=== PATIENT | female | born 1955 | race Caucasian/White ===

== ENCOUNTER 2017-09-08 12:47 | Emergency (ER) | payer BC ==
[~2017-09-08] VITALS: Ht 167.6 cm; Wt 124.3 kg
[2017-09-08 13:00] VITALS: BP 142/89
[2017-09-08] MEDS ORDERED: FURO-69 PO (13:29)
--- NOTE | 2017-09-08 13:29 | PHYS DOC ---
Past History Past Medical History: Diabetes Past Surgical History: No Surgical History Alcohol Use: Occasionally Drug Use: None Adult General Chief Complaint Chief Complaint: LOWER EXTREMITY SWELLING HPI HPI 62-year-old female presenting to the emergency department with bilateral leg swelling over the past few days. She reports a history of edema over the summer time which improved spontaneously. She did see her primary care physician for that at that time. She reports a history of poor sleeping and increased fatigue during the daytime along with noisy sleeping at night. She denies any difficulty breathing or exertional dyspnea. She denies any new rashes. She denies any recent immobilizations or surgery. Location legs. Duration intermittent. It is worse at the end of the evening and improved in the morning time. Review of systems is negative for difficulty breathing chest pain fevers or chills. She denies abdominal pain nausea or vomiting. She denies diaphoresis. All other review of systems is negative unless otherwise noted in history of present illness. ED course: 62-year-old female presenting with mild bilateral pedal edema. Upon arrival the patient is afebrile saturating well on room air and breathing comfortably. She is nontoxic appearing. Clear lung sounds bilaterally. Regular rate and rhythm. Abdomen is soft and nontender. Patient has 1+ edema bilaterally without any erythema. Nontender along the venous system on both sides. Her extremities are normal in color and temperature. Neurovascularly intact in all extremities. Palpable pulse with 2 second cap refill. I recommend the patient did not patient echocardiogram and outpatient sleep study. The patient's vital signs are unremarkable here other than mild htn. The patient was then discharged home in stable condition to follow up with their primary care physician over the next 2-3 days. They were to return if their symptoms worsened or if they were concerned for any reason. [id number] discharge instructions and return precautions were given. Patient's questions were answered to their satisfaction. Patient is comfortable with plan. Review of Systems Review of Systems SEE ABOVE. Allergies Allergies Allergies Coded Allergies Type Severity Reaction Last Updated Verified No Known Drug Allergies 09/08/17 No Physical Exam Physical Exam SEE ABOVE Constitutional: Well developed, well nourished, no acute distress, non-toxic appearance. [] HENT: Normocephalic, atraumatic, bilateral external ears normal, oropharynx moist, no oral exudates, nose normal. Eyes: PERRLA, EOMI, conjunctiva normal, no discharge. [] Neck: Normal range of motion, no tenderness, supple, no stridor. Cardiovascular:Heart rate regular rhythm, no murmur [] Lungs & Thorax: Bilateral breath sounds clear to auscultation Abdomen: Bowel sounds normal, soft, no tenderness, no masses, no pulsatile masses. [] Skin: Warm, dry, no erythema, no rash. [] Back: No tenderness, no CVA tenderness. Extremities: No tenderness, no cyanosis, no clubbing, ROM intact, 1+ edema bilaterally. No erythema of the skin. Normal temperature to touch. Neurologic: Alert and oriented X 3, normal motor function, normal sensory function, no focal deficits noted. Psychologic: Affect normal, judgement normal, mood normal. [] Current Patient Data Vital Signs Vital Signs Date Time Temp Pulse Resp B/P (MAP) Pulse Ox O2 Delivery O2 Flow Rate FiO2 09/08/17 13:00 98.2 98 18 98 Room Air EKG EKG [] Radiology/Procedures Radiology/Procedures [] Course & Med Decision Making Course & Med Decision Making Pertinent Labs and Imaging studies reviewed. (See chart for details) [] Dragon Disclaimer Dragon Disclaimer This electronic medical record was generated, in whole or in part, using a voice recognition dictation system. Departure Departure: Impression: Primary Impression: Pedal edema Disposition: 01 HOME, SELF-CARE Condition: STABLE Referrals: ROGER FONSECA MD (PCP) Patient Instructions: Edema Additional Instructions: Thank you for allowing us to participate in your care today. Today, I am going to start you on a low-dose medication for your edema. I am referring you back to primary care physician for outpatient evaluation workup. Tests that may be performed on an outpatient basis include echocardiogram and sleep study along with other tests the your doctor may desire. Followup with your primary care physician in 3 days. Call your Primary Doctor tomorrow and inform them of your visit today. If you do not have a primary care provider you can ask for a list of our primary care providers. Return to the emergency department you have any new or concerning findings. This should be evaluated by the primary care physician and any necessary consulting services for continued management within a few days after discharge. Return to emergency room if you have any new or concerning symptoms including but not limited to fever, chills, nausea, vomiting, intractable pain, any new rashes, chest pain, shortness of air, uncontrolled bleeding, difficulty breathing, and/or vision loss. Scripts Furosemide (LASIX) 20 Mg Tablet 1 TAB PO DAILY, #7 TAB 0 Refills Prov: CAMPBELL CHANG MD 09/08/17 CAMPBELL CHANG MD Sep 08, 2017 13:29
[2017-09-08] MEDS ORDERED: FUROSEMIDE 40 MG TABLET ONE (13:39)
[2017-09-08] MEDS ORDERED: FUROSEMIDE 40 MG TABLET PO ONE (17:00)
== END 2017-09-08 13:47 | disposition home or self-care (01) ==
LOC: ER 12:47
DX: R60.0 Localized edema (principal); E11.9 Type 2 diabetes mellitus without complications
CPT/HCPCS: 99283

== ENCOUNTER → 2017-09-16 | Outpatient (CLI) | payer BC ==
[2017-09-08 13:00] VITALS: BP 142/89
[~2017-09-16] MED LIST: FURO-69 PO
--- NOTE | 2017-09-16 13:46 | CARD ---
MR#: [id number] Date of Study: 09/16/2017 Ordering Physician: ROGER FONSECA, Referring Physician: ROGER FONSECA, Tech: Carmelita Olivermarcus [facility] APPROVED REPORT EXAM: Two-dimensional and M-mode echocardiogram with Doppler and color Doppler. Other Information Quality : Technically Difficult INDICATION Pedal Edema 2D DIMENSIONS Left Atrium(2D)4.2 (1.6-4.0cm)IVSd1.4 (0.7-1.1cm) Aortic Root(2D)2.7 (2.0-3.7cm)LVDd4.4 (3.9-5.9cm) LVOT Diameter2.0 (1.8-2.4cm)PWd1.0 (0.7-1.1cm) LVDs3.1 (2.5-4.0cm)FS (%) 30.2 % SV51.8 mlLVEF(%)57.7 (>50%) Aortic Valve AoV Peak Kaveh.170.6cm/sAoV VTI32.3cm AO Peak GR.11.6mmHgAO Mean GR.7mmHg Mitral Valve MV E Hxsivdxb75.5cm/sMV DECEL MLVV659ay MV A Qrtujywd42.9cm/sE/A Ratio0.7 Pulmonary Valve PV Peak Ywnkoztn363.4cm/sPV Peak Grad.5mmHg Tricuspid Valve TR P. Capwrend497hp/sRAP XCCTQOAI4ecCo TR Peak Gr.43apAvFWUT84adVx LEFT VENTRICLE The left ventricle is normal size. There is normal left ventricular wall thickness. The left ventricu lar systolic function is normal and the ejection fraction is within normal range. The Ejection Fracti on is 55-60%. There is normal LV segmental wall motion. Tissue Doppler imaging reveals mild left vent ricular diastolic dysfunction. RIGHT VENTRICLE The right ventricle is normal size. There is normal right ventricular wall thickness. The right ventr icular systolic function is normal. ATRIA The left atrium is borderline dilated. The right atrium is borderline dilated. The atrial septum is m ildly thickened. The interatrial septum is intact with no evidence for an atrial septal defect or pat ent foramen ovale as noted on 2-D or Doppler imaging. AORTIC VALVE The aortic valve is probably trileaflet. Doppler and Color Flow revealed no significant aortic regurg itation. There is no significant aortic valvular stenosis. MITRAL VALVE The mitral valve is normal in structure and function. There is no evidence of mitral valve prolapse. There is no mitral valve stenosis. Doppler and Color Flow revealed no mitral valve regurgitation note d. TRICUSPID VALVE The tricuspid valve is normal in structure and function. Doppler and Color Flow revealed trace tricus pid regurgitation. PA pressure of approximately 30 mm Hg. No significant pulmonary HTN. There is no t ricuspid valve stenosis. PULMONIC VALVE Doppler and Color Flow revealed no pulmonic valvular regurgitation. There is no pulmonic valvular dena nosis. GREAT VESSELS The aortic root is normal in size. The IVC is normal in size and collapses >50% with inspiration. PERICARDIAL EFFUSION There is no pleural effusion. There is no evidence of significant pericardial effusion. Critical Notification Critical Value: No <Conclusion> The left ventricular systolic function is normal and the ejection fraction is within normal range. Th e Ejection Fraction is 55-60%. There is normal LV segmental wall motion. Tissue Doppler imaging reveals mild left ventricular diastolic dysfunction. Doppler and Color Flow revealed trace tricuspid regurgitation. PA pressure of approximately 30 mm Hg. No significant pulmonary HTN. No significant valvular disease. Signed by : Karan Pagan, Electronically Approved : 09/16/2017 13:45:59
== END | disposition home or self-care (01) ==
LOC: ECHO 10:50
PROVIDERS: ATTEND Family Medicine
DX: R60.9 Edema, unspecified (principal); I07.1 Rheumatic tricuspid insufficiency
CPT/HCPCS: 93306

== ENCOUNTER → 2017-09-19 | Outpatient (CLI) | payer BC ==
[2017-09-08 13:00] VITALS: BP 142/89
--- NOTE | 2017-09-19 17:05 | RAD ---
DATE: 09/19/2017 EXAM: MAMMO TIAGO SCREENING BILATERAL Bilateral digital screening mammography to include digital breast tomosynthesis (3D mammography) HISTORY: Screening study. COMPARISON: 06/08/2015 This study was interpreted with the benefit of Computerized Aided Detection (CAD). The breast parenchyma is heterogeneously dense, which could reduce sensitivity of mammography. Breast parenchyma level C. FINDINGS: Digital MLO and CC mammograms of both breasts were obtained. Additionally digital breast tomosynthesis (3D mammography) images of both breasts in the MLO and CC projections were performed. Comparison study is dated 06/08/2015. The breast parenchyma is heterogeneously dense which can obscure a lesion on mammography (breast density code C). No spiculated mass is seen. No malignant appearing calcification or area of architectural distortion is noted. Well-defined benign-appearing nodules are seen scattered throughout both breasts consistent with the patient's history of breast cysts. Digital breast tomosynthesis images demonstrate no spiculated mass or malignant appearing calcification. Since the previous examination there has been no significant interval change. IMPRESSION: BI-RADS Category 2 benign findings. There is no mammographic evidence of malignancy. Routine yearly screening mammography is recommended for follow-up. BI-RADS CATEGORY: 2 BENIGN FINDING(S) RECOMMENDED FOLLOW-UP: 12M 12 MONTH FOLLOW-UP PQRS compliance statement: Patient information was entered into a reminder system with a target due date 09/19/2018 for the next mammogram. Mammography is a sensitive method for finding small breast cancers, but it does not detect them all and is not a substitute for careful clinical examination. A negative mammogram does not negate a clinically suspicious finding and should not result in delay in biopsying a clinically suspicious abnormality. "Our facility is accredited by the [employer] Mammography Program."
== END | disposition home or self-care (01) ==
LOC: MAMMO 14:48
PROVIDERS: ATTEND Family Medicine
DX: Z12.31 Encounter for screening mammogram for malignant neoplasm of breast (principal)
CPT/HCPCS: 77063; 77067

== ENCOUNTER → 2018-04-23 | Outpatient (CLI) | payer BC ==
--- NOTE | 2018-04-23 15:28 | RAD ---
Left lower extremity venous duplex study 04/23/2018 Clinical History: Lower extremity pain Technique: Using a combination of real time ultrasound imaging and color-flow and pulse Doppler imaging techniques, including spectral analysis, graded compression and augmentation, duplex evaluation of the deep venous system of the left lower extremity was performed. Multiple images were obtained. Findings: There is no sonographic evidence of deep venous thrombosis involving the visualized deep venous structures of the left lower extremity Impression: No evidence of deep venous thrombosis involving the left lower extremity Electronically signed by: Filiberto Zamudio MD (04/23/2018 3:24 PM) [id number]
--- NOTE | 2018-04-23 18:07 | RAD ---
KNEE LEFT 3V History: LEFT KNEE PAIN . Comparison: None are available No acute fracture or bone destruction. Joints and soft tissues appear intact. Impression: No acute radiographic abnormality Electronically signed by: Alex Wade MD (04/23/2018 6:03 PM) [id number]
== END | disposition home or self-care (01) ==
LOC: US 14:38
PROVIDERS: ATTEND Nurse Practitioner Family
DX: M25.562 Pain in left knee (principal); E11.9 Type 2 diabetes mellitus without complications
CPT/HCPCS: 73562; 93971

== ENCOUNTER → 2018-10-23 | Outpatient (CLI) | payer BC ==
[~2018-10-23] MED LIST changes: +BACL10TA PO
--- NOTE | 2018-10-23 09:55 | RAD ---
DATE: 10/23/2018 EXAM: MAMMO TIAGO SCREENING BILATERAL HISTORY: Routine screening COMPARISON: 09/19/2017 This study was interpreted with the benefit of Computerized Aided Detection (CAD). Breast Density: HETERO The breast parenchyma is heterogenously dense, which could reduce sensitivity of mammography. Breast parenchyma level C. FINDINGS: The fibroglandular tissues are heterogeneous and multinodular in character. A previous ultrasound study demonstrated multiple bilateral breast cysts. No new or enlarging breast densities are seen. No spiculated mass or architectural distortion is evident. Scattered benign type calcifications are again noted. IMPRESSION: Stable mammograms without evidence of malignancy. BI-RADS CATEGORY: 2 BENIGN FINDING(S) RECOMMENDED FOLLOW-UP: 12M 12 MONTH FOLLOW-UP PQRS compliance statement: Patient information was entered into a reminder system with a target due date for the next mammogram. Mammography is a sensitive method for finding small breast cancers, but it does not detect them all and is not a substitute for careful clinical examination. A negative mammogram does not negate a clinically suspicious finding and should not result in delay in biopsying a clinically suspicious abnormality. "Our facility is accredited by the [employer] Mammography [employer]."
== END | disposition home or self-care (01) ==
LOC: MAMMO 07:45
PROVIDERS: ATTEND Family Medicine
DX: Z12.31 Encounter for screening mammogram for malignant neoplasm of breast (principal)
CPT/HCPCS: 77063; 77067

== ENCOUNTER 2019-03-07 15:41 | Emergency (ER) | payer BC ==
[~2019-03-07] VITALS: Ht 167.6 cm; Wt 130.0 kg
[~2019-03-07 15:41] MED LIST changes: -BACL10TA PO
[2019-03-07 16:37] LABS: BACTERIA,URINE 0 /HPF (0-FEW); BILIRUBIN,URINE NEG (NEG); CLARITY,URINE HAZY; COLOR,URINE AMBER; GLUCOSE,URINE NEG (NEG); NITRITE,URINE NEG (NEG); RBC,URINE 0 /HPF (0-2); SQUAMOUS EPITHELIAL CELL,UR OCC /LPF; UROBILINOGEN,URINE 0.2 mg/dL (0.2 mg/dL); WBC,URINE 0 /HPF (0-4)
--- NOTE | 2019-03-07 16:45 | PHYS DOC ---
Past History Past Medical History: Diabetes Past Surgical History: No Surgical History, Hysterectomy Alcohol Use: Occasionally Drug Use: None Adult General Chief Complaint Chief Complaint: BACK PAIN OR INJURY HPI HPI 63-year-old female presents with left-sided mid back pain. Patient states that she is having remnants episodes of a tightness feeling that lasts for a few seconds each episode over the eighth through 10th ribs. This is been going on for a couple of days. Went to her PCP a few days ago with concern for UTI or kidney stone and she did not have infection but did have blood in her urine. They referred her to urology. The patient comes in today because the pain seemed to be more frequent and more intense. She denies fever or chills. Review of Systems Review of Systems Constitutional: Denies fever or chills [] Eyes: Denies change in visual acuity, redness, or eye pain [] HENT: Denies nasal congestion or sore throat [] Respiratory: Denies cough or shortness of breath [] Cardiovascular: No additional information not addressed in HPI [] GI: Denies abdominal pain, nausea, vomiting, bloody stools or diarrhea [] : Denies dysuria or hematuria [] Musculoskeletal: Left-sided back pain[] Integument: Denies rash or skin lesions [] Neurologic: Denies headache, focal weakness or sensory changes [] Endocrine: Denies polyuria or polydipsia [] All other systems were reviewed and found to be within normal limits, except as documented in this note. Allergies Allergies Allergies Coded Allergies Type Severity Reaction Last Updated Verified No Known Drug Allergies 09/08/17 No Physical Exam Physical Exam Constitutional: Well developed, morbidly obese, well nourished, no acute distress, non-toxic appearance. [] HENT: Normocephalic, atraumatic, bilateral external ears normal, oropharynx moist, no oral exudates, nose normal. [] Eyes: PERRLA, EOMI, conjunctiva normal, no discharge. [] Neck: Normal range of motion, no tenderness, supple, no stridor. [] Cardiovascular:Heart rate regular rhythm, no murmur [] Lungs & Thorax: Bilateral breath sounds clear to auscultation [] Abdomen: Bowel sounds normal, soft, no tenderness, no masses, no pulsatile masses. [] Skin: Warm, dry, no erythema, no rash. [] Back: Mild left CVA tenderness. [] Extremities: No tenderness, no cyanosis, no clubbing, ROM intact, no edema. [] Neurologic: Alert and oriented X 3, normal motor function, normal sensory function, no focal deficits noted. [] Psychologic: Affect normal, judgement normal, mood normal. [] Current Patient Data Vital Signs Vital Signs Date Time Temp Pulse Resp B/P (MAP) Pulse Ox O2 Delivery O2 Flow Rate FiO2 03/07/19 15:58 98.2 103 18 95 Room Air Lab Results Laboratory Tests Test 03/07/19 16:19 Urine Collection Type Unknown Urine Color Mildred Urine Clarity Hazy Urine pH 5.5 Urine Specific Friendship >=1.030 Urine Protein Neg (NEG-TRACE) Urine Glucose (UA) Neg mg/dL (NEG) Urine Ketones (Stick) Neg mg/dL (NEG) Urine Blood Trace (NEG) Urine Nitrite Neg (NEG) Urine Bilirubin Neg (NEG) Urine Urobilinogen Dipstick 0.2 mg/dL (0.2 mg/dL) Urine Leukocyte Esterase Neg (NEG) Urine RBC 0 /HPF (0-2) Urine WBC 0 /HPF (0-4) Urine Squamous Epithelial Cells Occ /LPF Urine Bacteria 0 /HPF (0-FEW) EKG EKG [] Radiology/Procedures Radiology/Procedures [] Course & Med Decision Making Course & Med Decision Making Pertinent Labs and Imaging studies reviewed. (See chart for details) The patient's urinalysis shows small blood, but no white cells and no RBCs. CT scan is negative for acute findings. A significant mostly more musculoskeletal. I believe she is getting muscle spasms. I will treat her with muscle relaxant baclofen. She is stable for discharge at this time. [] Dragon Disclaimer Dragon Disclaimer This electronic medical record was generated, in whole or in part, using a voice recognition dictation system. Departure Departure: Impression: Primary Impression: Lumbar paraspinal muscle spasm Disposition: 01 HOME, SELF-CARE Condition: STABLE Referrals: ROGER FONSECA MD (PCP) Patient Instructions: Low Back Strain with Rehab-SportsMed Scripts Baclofen (BACLOFEN) 10 Mg Tablet 10 MG PO QID PRN for MUSCLE SPASMS, #30 TAB 0 Refills Prov: ELMA YORK DO 03/07/19 ELMA YORK DO Mar 07, 2019 16:45
--- NOTE | 2019-03-07 17:16 | RAD ---
CT scan of the abdomen and pelvis without contrast 03/07/2019 CLINICAL HISTORY: Flank pain. TECHNIQUE: Unenhanced, contiguous, 3 mm axial sections were obtained through the abdomen and pelvis. One or more of the following individualized dose reduction techniques were utilized for this study: 1. Automated exposure control. 2. Adjustment of the mA and/or kV according to patient size. 3. Use of iterative reconstruction technique. FINDINGS: Comparison study is dated 11/13/2010. Images through the lung bases demonstrate minimal dependent subsegmental atelectasis bilaterally. The liver parenchyma has a decreased attenuation consistent with fatty infiltration. The spleen, pancreas, adrenal glands and kidneys are within normal limits. No renal or ureteral calculus is seen. There is no evidence of obstruction of either collecting system. Atherosclerotic calcification of the abdominal aorta is seen. The abdominal aorta tapers normally. No free fluid or free air is within the abdomen. There is no evidence of bowel obstruction. The appendix is well-visualized and is within normal limits. Images through the pelvis demonstrate the urinary bladder to be contracted. Calcifications are seen within the pelvis consistent with phleboliths. No free fluid is seen. Scattered diverticula are seen involving the sigmoid colon. No inflammatory changes are seen in the adjacent fat. Very mild S-shaped curvature of the thoracolumbar spine is seen. Degenerative changes are seen involving the lower thoracic and throughout the lumbar spine. IMPRESSION: No acute abnormality is seen. Electronically signed by: Sukhjinder Mccartney MD (03/07/2019 5:13 PM) [facility]
[2019-03-07] MEDS ORDERED: BACL10TA PO (17:30)
[2019-03-07 17:37] VITALS: BP 165/87
== END 2019-03-07 17:35 | disposition home or self-care (01) ==
LOC: ER 15:41
DX: M62.830 Muscle spasm of back (principal); M54.5 Low back pain; R07.81 Pleurodynia; E11.9 Type 2 diabetes mellitus without complications
CPT/HCPCS: 74176; 81001; 99285

== ENCOUNTER → 2019-11-17 | Outpatient (CLI) | payer BC ==
[~2019-11-17] MED LIST changes: +BACL10TA PO
--- NOTE | 2019-11-17 12:56 | RAD ---
DEXA scan 11/17/2019 Clinical History: Menopause. Risk factors for osteoporosis. Technique: DEXA of the lumbar spine and right hip was performed. FINDINGS: No previous studies are available for comparison. The bone mineral density of the lumbar spine is 1.139 g/cm2 which corresponds with a T-score of -0.3 . This is within normal limits. The mean bone mineral density of the right hip is 896 g/sq cm. This corresponds to a T score of -0.5 . This is within normal limits. By World [employer] on Osteoporosis criteria, a T score of 0 to-1 SD is considered to be within normal limits. A T score of -1 to -2.5 SD is considered osteopenia. A T score less than -2.5 SD is considered osteoporosis Impression: The patient's mean bone mineral densities are within normal limits. Electronically signed by: Sukhjinder Mccartney MD (11/17/2019 12:53 PM) [facility] [place]
--- NOTE | 2019-11-19 13:52 | RAD ---
History: Routine screening. Technique: Bilateral digital mammographic routine views were obtained with 2-D and 3-D technique including CAD - computer aided detection. Comparison: 10/23/2018. Findings: Breast Tissue Density B :The breast tissue is composed of mixed fatty and fibroglandular tissue. There are no suspicious masses, microcalcifications or areas of architectural distortion. Impression: Negative mammogram. BI-RADS Category 1: Negative. Normal interval followup. A mammogram does not have 100% sensitivity and therefore a negative imaging study should not delay further work up of a suspicious abnormality. The patient will receive a letter with the results in the mail. Patient information is entered into the reminder system with a target due date for the next screening mammogram. The patient will receive a reminder. "Our facility is accredited by the [employer] Mammography Program." BI-RADS 1 -- negative findings (within normal)
== END | disposition home or self-care (01) ==
LOC: MAMMO 08:56
PROVIDERS: ATTEND Physician Assistant Medical
DX: Z12.31 Encounter for screening mammogram for malignant neoplasm of breast (principal)
CPT/HCPCS: 77063; 77067; 77080

== ENCOUNTER → 2020-11-28 | Outpatient (CLI) | payer BC ==
--- NOTE | 2020-11-28 13:19 | RAD ---
DATE: 11/28/2020 11:20 AM EXAM: MAMMO TIAGO SCREENING BILATERAL HISTORY: Screening COMPARISON: 09/19/2017, 10/23/2018 and 11/17/2019 Bilateral CC and MLO views of the breasts were performed. Bilateral breast tomosynthesis was performed in CC and MLO projections. This study was interpreted with the benefit of Computerized Aided Detection (CAD). FINDINGS: Breast Density: HETERO The breast parenchyma Is heterogeneously dense, which could reduce sensitivity of mammography. Breast parenchyma level C No suspicious masses, microcalcifications or architectural distortion is present to suggest malignancy in either breast. The visualized axillae are unremarkable. IMPRESSION: No mammographic evidence of malignancy. BI-RADS CATEGORY: 1 NEGATIVE RECOMMENDED FOLLOW-UP: 12M 12 MONTH FOLLOW-UP Annual screening mammography is recommended, unless clinically indicated sooner based on symptoms or change in physical exam. PQRS compliance statement: Patient information was entered into a reminder system with a target due date for the next mammogram. Mammography is a sensitive method for finding small breast cancers, but it does not detect them all and is not a substitute for careful clinical examination. A negative mammogram does not negate a clinically suspicious finding and should not result in delay in biopsying a clinically suspicious abnormality. "Our facility is accredited by the [employer] Mammography Program."
== END ==
LOC: MAMMO 11:16
PROVIDERS: ATTEND Physician Assistant Medical
DX: Z12.31 Encounter for screening mammogram for malignant neoplasm of breast (principal)
CPT/HCPCS: 77063; 77067

== ENCOUNTER → 2021-03-06 | Outpatient (CLI) | payer BC ==
--- NOTE | 2021-03-06 08:57 | RAD ---
EXAMINATION: RIGHT UPPER QUADRANT ULTRASOUND CLINICAL HISTORY: Right upper quadrant abdominal pain TECHNIQUE: Sonography of the right upper quadrant was performed. COMPARISON: CT abdomen/pelvis 03/07/2019 FINDINGS: Pancreas: Poorly visualized secondary to prominent overlying bowel gas. Liver: - Echotexture: Normal, homogeneous. - Echogenicity: Increased - Surface contour: Smooth - Lesions: None. Biliary: No intrahepatic biliary duct dilation. - CBD: 12 mm. - Gallbladder: Normal caliber - Contents: No cholelithiasis - Wall: Normal - Other: No pericholecystic fluid. Right Kidney: Measures 10.9 cm in length. No hydronephrosis or focal lesion. Ascites: None. Aorta/IVC: Partially visualized aorta and IVC unremarkable. IMPRESSION: Dilated common bile duct without evidence of choledocholithiasis, correlate clinically and consider M MANAGER RESIDENTIAL for further evaluation as indicated. Hepatic steatosis. Poorly visualized pancreas. Electronically signed by: Harris Mack DO (03/06/2021 8:55 AM) [id number]
== END ==
LOC: US 07:52
PROVIDERS: ATTEND Physician Assistant Medical
DX: K83.8 Other specified diseases of biliary tract (principal); K76.0 Fatty (change of) liver, not elsewhere classified
CPT/HCPCS: 76705

== ENCOUNTER → 2021-04-05 | Outpatient (CLI) | payer MEDICARE ==
--- NOTE | 2021-04-05 14:35 | RAD ---
EXAM: PA and Lateral Views of the Chest DATE: 04/05/2021 11:40 AM INDICATION: Reason: CHEST PAIN / Spl. Instructions: / History: COMPARISON: No Prior FINDINGS: The heart is not enlarged. Mediastinal and hilar contours are normal. No focal parenchymal airspace opacity. No pleural effusion or pneumothorax. IMPRESSION: 1. No radiographic evidence for acute cardiopulmonary process. Electronically signed by: Iarj Hassan MD (04/05/2021 2:33 PM) [id number]
--- NOTE | 2021-04-05 15:24 | RAD ---
XR HAND 2 VIEWS 04/05/2021 3:06 PM Reason: BILATERAL HAND PAIN Comparison: None Technique: 2 views of each hand Findings: There is no acute fracture or dislocation. There is joint space narrowing and osteophyte fo rmation greatest at the distal interphalangeal joints bilaterally. No changes to suggest periarticula r reabsorption. There is mild joint space narrowing of the proximal interphalangeal joint. Degenerati ve changes also seen at the first carpal metacarpal joint. Soft tissues are unremarkable. Impression: Findings most suggestive of osteoarthritis. Electronically signed by: Jovany Cerrato (04/05/2021 3:21 PM) [id number]
--- NOTE | 2021-04-05 16:13 | RAD ---
XR HIP (WITH OR WITHOUT PELVIS) 1 VIEW 04/05/2021 4:08 PM Reason: BILATERAL HIP PAIN Comparison: None Technique: AP view of the pelvis, 2 views of each hip Findings: There is no acute fracture or dislocation. The pelvic rings are congruent. There are vascular calcifi cations overlying the lower pelvis. There is mild degenerative changes of the bilateral hips with sub chondral sclerosis and marginal osteophytosis. Mild joint space narrowing. Smooth, calcific body stewart g the left greater trochanter of uncertain origin, possibly remote trauma. Impression: 1. No acute osseous abnormality. 2. Mild degenerative changes bilateral hips. Electronically signed by: Jovany Cerrato (04/05/2021 4:10 PM) [id number]
== END ==
LOC: RAD 11:19
PROVIDERS: ATTEND Internal Medicine Rheumatology
DX: M16.0 Bilateral primary osteoarthritis of hip (principal); M25.742 Osteophyte, left hand; M25.741 Osteophyte, right hand; M70.60 Trochanteric bursitis, unspecified hip; M79.7 Fibromyalgia; H04.123 Dry eye syndrome of bilateral lacrimal glands; R53.83 Other fatigue; R70.0 Elevated erythrocyte sedimentation rate; R79.82 Elevated C-reactive protein (CRP); Z79.899 Other long term (current) drug therapy
CPT/HCPCS: 71046; 73120; 73521

== ENCOUNTER → 2021-05-25 | Outpatient (CLI) | payer MEDICARE ==
[2021-05-25 09:46] LABS: ALBUMIN 3.3 g/dL (3.4-5.0); DIRECT BILIRUBIN 0.1 mg/dL (0.0-0.2); TOTAL BILIRUBIN 0.3 mg/dL (0.2-1.0); TOTAL PROTEIN 7.4 g/dL (6.4-8.2)
== END ==
LOC: LAB 08:54
PROVIDERS: ATTEND Internal Medicine Gastroenterology
DX: R10.11 Right upper quadrant pain (principal)
CPT/HCPCS: 36415; 80076

== ENCOUNTER → 2021-06-05 | Outpatient (CLI) | payer MEDICARE ==
[~2021-06-05] MED LIST changes: +IOHEXOL 300 MG/ML 75 ML VIAL. IV ONE
[2021-06-05 09:10] LABS: CREATININE 0.7 mg/dL (0.6-1.0)
--- NOTE | 2021-06-05 10:48 | RAD ---
EXAMINATION: CT abdomen with and without IV contrast. INDICATION:66 years, Female, abnormal ultrasound dilated CBD. TECHNIQUE: Axial CT images of the abdomen was obtained. Coronal and sagittal reformatted performed. COMPARISON: Ultrasound dated 03/06/2021. Exposure: One or more of the following individualized dose reduction techniques were utilized for thi s examination: 1. Automated exposure control 2. Adjustment of the mA and/or kV according to patient size 3. Use of iterative reconstruction technique. FINDINGS: LOWER CHEST: Unremarkable. ABDOMEN/PELVIS: Mild hepatomegaly with diffuse steatosis, measures 20 cm in length. No suspicious focal hepatic lesio n. Multifocal areas of fatty sparing adjacent to the gallbladder. Unremarkable gallbladder, biliary d ucts and spleen. Mildly atrophic pancreatic parenchyma with fat infiltration. No hydronephrosis or ne phrolithiasis in either kidney. Small hiatal hernia. No bowel obstruction. Normal appendix. No lympha denopathy in the abdomen by size criteria. Normal caliber abdominal aorta. Mesenteric arteries and po rtal vein are patent. No ascites or pneumoperitoneum. MUSCULOSKELETAL: No acute osseous process or suspicious lesion. IMPRESSION: 1. No intra or extrahepatic biliary ductal dilation. 2. Mild hepatomegaly with moderate to severe steatosis. Electronically signed by: Ysabel Loera MD (06/05/2021 10:46 AM) [id number]
== END ==
LOC: CT 08:14
PROVIDERS: ATTEND Internal Medicine Gastroenterology
DX: K76.0 Fatty (change of) liver, not elsewhere classified (principal); K44.9 Diaphragmatic hernia without obstruction or gangrene; R16.0 Hepatomegaly, not elsewhere classified; R93.3 Abnormal findings on diagnostic imaging of other parts of digestive tract
CPT/HCPCS: 36415; 74170; 82565; 84520; Q9967

== ENCOUNTER → 2021-06-19 | Outpatient (CLI) | payer MEDICARE ==
[~2021-06-19] MED LIST changes: -IOHEXOL 300 MG/ML 75 ML VIAL. IV ONE
[2021-06-20 08:15] LABS: CERULOPLASMIN 29.3 mg/dL (19.0-39.0)
[2021-06-21 16:18] LABS: A1A SERUM 131 mg/dL (101-187)
== END ==
LOC: LAB 08:18
PROVIDERS: ATTEND Internal Medicine Gastroenterology
DX: R79.89 Other specified abnormal findings of blood chemistry (principal)
CPT/HCPCS: 36415; 82103; 82104; 82390; 82728; 86803; 87340

== ENCOUNTER → 2021-11-02 | Outpatient (CLI) | payer MEDICARE ==
--- NOTE | 2021-11-02 08:41 | RAD ---
Examination: 2 views of the bilateral knees HISTORY: History of fall COMPARISON: None available FINDINGS: Moderate joint space loss identified in the medial, lateral, patellofemoral compartments of the bilat eral knees. There is no acute fracture dislocation identified. IMPRESSION: Moderate tricompartmental degenerative changes bilateral knees. Electronically signed by: Kem Jacinto MD (11/02/2021 8:38 AM) [id number]
== END ==
LOC: RAD 08:07
PROVIDERS: ATTEND Physician Assistant Medical
DX: M17.0 Bilateral primary osteoarthritis of knee (principal)
CPT/HCPCS: 73560-50

== ENCOUNTER → 2021-12-19 | Outpatient (CLI) | payer MEDICARE ==
--- NOTE | 2021-12-19 16:55 | RAD ---
INDICATION: 66 years of age asymptomatic female patient presents for screening mammography. Family hi story breast cancer and paternal aunt and paternal grandmother, ages unspecified. TECHNIQUE: Full field craniocaudal and mediolateral oblique images of both breasts were obtained usi ng digital technique with tomosynthesis and also analyzed with computer-aided detection software. COMPARISON: Prior mammographic imaging dating back to 09/19/2017. BREAST COMPOSITION: Category B: There are scattered fibroglandular densities. FINDINGS: Stable nodular parenchymal pattern of both breasts. No suspicious masses, microcalcifications or architectural distortion is present to suggest malignanc y in either breast. The visualized axillae are unremarkable. IMPRESSION: No mammographic evidence of malignancy. RECOMMENDATION: Annual screening mammography is recommended, unless clinically indicated sooner based on symptoms or change in physical exam. BIRADS 2: BENIGN This study was interpreted with the benefit of Computerized Aided Detection (CAD). Patient information is entered into the reminder system with a target due date for the next screening mammogram. Mammography is the most sensitive method for finding small breast cancers, but it does not detect the m all and is not a substitute for careful clinical examination. A negative mammogram does not negate a clinically suspicious finding and should not result in delay in biopsying a clinically suspicious a bnormality. "Our facility is accredited by the [employer] Mammography Program." Electronically signed by: Jovi Han DO (12/19/2021 4:53 PM) [id number]
== END ==
LOC: MAMMO 08:25
PROVIDERS: ATTEND Physician Assistant Medical
DX: Z12.31 Encounter for screening mammogram for malignant neoplasm of breast (principal)
CPT/HCPCS: 77063; 77067